=== PATIENT | female | born 1960 | race Caucasian/White ===

== ENCOUNTER → 2024-09-25 08:52 | Outpatient (CLI) | payer MEDICARE, MEDICAID, SELFPAY ==
--- NOTE | 2024-09-25 08:59 | DI.RAD.S_ITS ---
PROCEDURE: FL UPPER GI SMALL BOWEL INDICATIONS: HIATAL HERNIA COMPARISON: [facility], CT, CT CHEST WO CON, 09/25/2024, 9:19. FINDINGS AND IMPRESSION: Very limited images due to patient mobility limitations. Moderately patulous esophagus is seen upon ingestion of barium, with normal transit into the stomach. Moderate to large hiatal hernia is present Small-bowel follow-through was obtained following contrast ingestion, with transit to the colon at 90 minutes. Dictated by: Francis Green M.D. on 09/25/2024 at 12:25 Approved by: Francis Green M.D. on 09/25/2024 at 12:26
--- NOTE | 2024-09-25 09:00 | DI.CT.S_ITS ---
PROCEDURE: CT CHEST WO CON INDICATIONS: HIATAL HERNIA TECHNIQUE: Noncontrast 5 mm thick sections acquired from the pulmonary apices to the posterior costophrenic angles. 1 mm lung window, 5 mm thick coronal and sagittal and 7 mm axial MIP reformats were then acquired. For radiation dose reduction, the following was used: automated exposure control, adjustment of mA and/or kV according to patient size. COMPARISON: None. FINDINGS: Image quality: Diagnostic. Lower Neck: No enlarged lymph nodes. Thyroid: No thyroid nodules which require sonographic follow up, per consensus guidelines. Axillae: No enlarged lymph nodes. Chest Wall: Unremarkable. Bones: Unremarkable. Lungs and Pleura: No pneumothorax or pleural effusions. Scattered solid pulmonary nodules, largest measuring 9 x 6 mm in the left lower lobe (series 3, image 118). Juxtapleural nodules with smooth margins, favoring benign intrapulmonary lymph nodes. Heart: Heart size is normal. No pericardial effusion. Thoracic Vessels: The aorta and pulmonary arteries demonstrate normal size. Mediastinum and Juanis: Prominent periesophageal lymph nodes, largest measuring 1 cm short axis (series 2, image 46). Esophagus: Wall thickening of the lower esophagus. Large hiatal hernia. Patulous esophagus. Upper Abdomen: Visualized upper abdomen solid organs and bowel loops appear normal. IMPRESSION: Large hiatal hernia with a patulous esophagus. Wall thickening of the lower esophagus with adjacent prominent lymph nodes. Consider endoscopic evaluation given the presence of prominent lymph nodes, to exclude underlying mass. Differential includes esophagitis. Scattered solid pulmonary nodules, largest measuring 9 x 6 mm in the lingula. Recommend six-month follow-up per Fleischner society guidelines. Dictated by: Jonatan Padilla M.D. on 09/25/2024 at 22:45 Approved by: Jonatan Padilla M.D. on 09/25/2024 at 22:48
== END ==
PROVIDERS: PCP Surgery; Referring Provider Surgery; Visit Provider Surgery
DX: K44.9 Diaphragmatic hernia without obstruction or gangrene (principal); R91.8 Other nonspecific abnormal finding of lung field
CPT/HCPCS: 71250; 74240; 74248

== ENCOUNTER → 2025-04-08 13:03 | Outpatient (CLI) | payer MEDICARE, MEDICAID, SELFPAY ==
--- NOTE | 2025-04-08 13:07 | DI.ECHO.S_ITS ---
[facility] : : [id number] : : [place] : : [id number] : : Phone: [phone] Echocardiogram Report + + :Name: LUCIAN RUFFIN Study Date: 04/08/2025 Height: 63 in : :[facility] ReadingLocation: Weight: 164 lb : : Gender: Female BSA: 1.8 m2 : :: 1960 Age: 64 yrs BP: 161/79 mmHg: :Reason For Study: MURMUR : :Ordering Physician: KAREN : :TRICIA Performed By: Jakob Yi : :Referring: TRICIA JONES : + + Interpretation Summary This is a technically difficult echo characterized by patient's CP with associated trouble reclining. Scan was obtained sitting up. Normal sinus rhythm. Normal LV size and mild LVH; there is LVOT and mid-cavity obstruction with peak velocity of 3 m/sec and peak gradient of 36 mm Hg. Mild LA enlargement; otherwise normal chamber sizes. Mild MAC; otherwise no significant valve abnormalities. No prior echo available for comparison. Procedure: A two-dimensional transthoracic echocardiogram with color flow and Doppler was performed. The study quality was technically difficult. There is no prior echocardiogram noted for this patient. The patient was in normal sinus rhythm during the exam. Left Ventricle: The left ventricle is normal in size. Left ventricular wall thickness is mildly increased. An intracavitary gradient is suspected. There is no ventricular septal defect visualized. The ejection fraction is estimated to be 75-80%. The left ventricle is hyperdynamic. Right Ventricle: The right ventricle is not well visualized. Atria: The left atrium is mildly dilated. Right atrium not well visualized. There is no Doppler evidence for an interatrial shunt. Mitral Valve: The mitral valve leaflets are mildly calcified. There is no mitral regurgitation noted. Aortic Valve: The aortic valve is trileaflet. The aortic valve is slightly calcified. The aortic valve opens well. No aortic regurgitation is present. Tricuspid Valve: The tricuspid valve is not well visualized. No tricuspid regurgitation. Pulmonic Valve: The pulmonic valve is not well visualized. There is no pulmonic valvular regurgitation. Great Vessels: The aortic root is normal size. The dimensions of the ascending aorta are normal. The pulmonary is not well visualized. The inferior vena cava was not visualized. Pericardium/ Pleura There is no pericardial effusion. MMode/2D Measurements & Calculations LVIDd: 4.0 cm LVOT diam: 1.8 cm LVIDs: 2.1 cm Ao root diam: 2.9 cm FS: 47.6 % asc Aorta Diam: 2.7 cm EPSS: 0.35 cm Ao Arch Diam (Prox Trans): 2.2 cm IVSd: 1.1 cm LVPWd: 1.1 cm LV alexander. diameter/BSA (cm/m^2): 2.2 LV sys. diameter/BSA (cm/m^2): 1.2 LA A2 area: 14.3 cm2 TAPSE: 2.1 cm LA A4 area: 27.0 cm2 LA length (vol): 6.2 cm LA vol: 52.5 ml LA vol index: 29.6 ml/m2 Doppler Measurements & Calculations Ao V2 max: 193.0 cm/sec LVOT Max Ifeanyi: 131.0 cm/sec Ao V2 mean: 143.0 cm/sec LV V1 max P.9 mmHg Ao max P.9 mmHg LV V1 VTI: 29.1 cm Ao mean P.0 mmHg SWETA(I,D): 1.9 cm2 Ao V2 VTI: 38.1 cm SWETA(V,D): 1.7 cm2 sev ratio: 0.76 SWETA indexed to BSA (cm^2/m^2): 1.1 MV E max ifeanyi: 51.0 cm/sec PA V2 max: 134.8 cm/sec MV A max ifeanyi: 74.1 cm/sec PA V2 mean: 94.7 cm/sec MV E/A: 0.69 PA mean P.0 mmHg Med Peak E' Ifeanyi: 4.3 cm/sec PA pr(Accel): 20.8 mmHg E/E' med: 12.0 Lat Peak E' Ifeanyi: 5.1 cm/sec E/E' lat: 10.0 E/e' average: 11.0 MV dec time: 0.35 sec SV(LVOT): 71.8 ml Electronically signed by: Yancy Patrick M.D. on Reading Physician:04/08/2025 10:52 PM
== END ==
LOC: ECHO 13:06
PROVIDERS: PCP Nurse Practitioner Gerontology; Referring Provider Surgery; Visit Provider Surgery
DX: R01.1 Cardiac murmur, unspecified (principal)
CPT/HCPCS: 93306